=== PATIENT | male | born 1965 | race Caucasian/White ===

== ENCOUNTER → 2019-09-14 17:18 | Outpatient (BNVA) | payer OTHER, SELFPAY | PROVIDERS: Family Provider Nurse Practitioner Family; PCP Nurse Practitioner Family; Visit Provider Family Medicine | DX: R05 Cough (principal); J45.901 Unspecified asthma with (acute) exacerbation; J20.8 Acute bronchitis due to other specified organisms | CPT/HCPCS: 71046 ==

== ENCOUNTER → 2024-01-23 11:25 | Outpatient (BNVA) | payer OTHER, SELFPAY | PROVIDERS: Family Provider Nurse Practitioner Family; PCP Registered Nurse; Visit Provider Registered Nurse | DX: L98.9 Disorder of the skin and subcutaneous tissue, unspecified (principal) | CPT/HCPCS: 88305 ==